=== PATIENT | male | born 2000 | race Two or more races ===

== ENCOUNTER 2021-03-13 10:33 | Emergency (ER) | payer MEDICAID, OTHER ==
[~2021-03-13] VITALS: Ht 185.4 cm; Wt 100.0 kg
[2021-03-13 11:17] LABS: BASOPHILS % (AUTO) 1 % (0-1); EOSINOPHILS % (AUTO) 1 % (1-7); LYMPHOCYTES % (AUTO) 19 % (22-44); MEAN CORPUSCULAR HEMOGLOBIN 30.5 pg (27.5-34.5); MEAN CORPUSCULAR HGB CONC 33.9 g/dL (33.2-36.2); MEAN PLATELET VOLUME 9.9 fL (7.4-10.4); MONOCYTES % (AUTO) 8 % (2-9); NEUTROPHILS % (AUTO) 71 % (42-75); PLATELET COUNT 231 x10^3/uL (130-400); RED BLOOD COUNT 5.11 x10^6/uL (4.38-5.82); RED CELL DISTRIBUTION WIDTH 13.8 % (9.4-14.8)
[2021-03-13 11:18] LABS: MD NO
[2021-03-13] MEDS ORDERED: LORazepam 1MG TABLET ONE (11:21)
[2021-03-13 11:25] LABS: ALANINE AMINOTRANSFERASE 37 U/L (12-78); ALBUMIN 3.9 g/dL (3.4-5.0); ANION GAP 5 mmol/L (5-15); CALCIUM 9.1 mg/dL (8.5-10.1); CHLORIDE 108 mmol/L (98-107)
[2021-03-13 11:27] LABS: ALKALINE PHOSPHATASE 115 U/L (45-117); BILIRUBIN,TOTAL 0.4 mg/dL (0.2-1.0); CREATININE 0.88 mg/dL (0.7-1.3); SALICYLATE LEVEL < 1.7 mg/dL (2.8-20.0); TOTAL PROTEIN 8.7 g/dL (6.4-8.2)
[2021-03-13] MEDS ORDERED: PLEASE ENTER ALLERGIES MC SCH (11:30)
[2021-03-13] MEDS ORDERED: LORazepam 1MG TABLET PO ONE (11:30)
[2021-03-13 11:35] VITALS: BP 114/81
== END 2021-03-13 11:37 | disposition home or self-care (01) ==
LOC: ED 11:20
DX: F32.9 Major depressive disorder, single episode, unspecified (principal); F43.0 Acute stress reaction
CPT/HCPCS: 36415; 80053; 80299; 80320; 80329; 85025; 99283; G0480